=== PATIENT | female | born 1935 | race Caucasian/White ===

== ENCOUNTER 2018-10-04 19:42 | Inpatient (IN) | payer BC ==
[~2018-10-04] VITALS: Ht 160 cm; Wt 64.0 kg
[2018-10-04 20:09] VITALS: Ht 160 cm; Wt 64.0 kg
--- NOTE | 2018-10-04 20:12 | NUR ---
EMT AT BEDSIDE FOR EKG.
--- NOTE | 2018-10-04 20:25 | NUR ---
PT AAOX4, NO S/S OF DISTRESS NOTED, RESPIRATION EVEN AND UNLABORED. PT REPORTS COUGH AND FEVER X 4 DAYS ON ASSESSMENTS. PT REPORTS "TIREDNESS" X 4 DAYS. ON ASSESSMENT LUNG SOUNDS CLEAR BILATERALLY. PT DENIES PAIN AT THIS TIME. PT DENIES N/V, DIZZINESS AT THIS TIME. PT TALKING TO DAUGHTER AT BEDSIDE.
--- NOTE | 2018-10-04 21:06 | NUR ---
PT TO XRAY VIA WC, NAD NOTED.
[2018-10-04 21:38] LABS: BASOPHIL % 0.7 % (0-2); PLATELET COUNT 204 x10^3mcL (130-400); RED CELL DISTRIBUTION WIDTH 13.8 % (11.5-14.5)
[2018-10-04 21:46] LABS: CALCIUM 9.3 mg/dL (8.5-10.1); CARBON DIOXIDE 27.1 mmol/L (21-32); CHLORIDE SERUM 100 mmol/L (98-107); CREATININE SERUM 1.1 mg/dL (0.6-1.0); GLUCOSE SERUM 97 mg/dL (74-106); POTASSIUM SERUM 4.3 mmol/L (3.5-5.1); SODIUM SERUM 136 mmol/L (136-145)
--- NOTE | 2018-10-04 21:47 | NUR ---
PT SITTING UP IN BED, NO S/S OF DISTRESS NOTED, RESPIRATIONS EVEN AND UNLABORED. PT DENIES PAIN AT THIS TIME AND REPORTS IMPROVEMENTS IN BREATHING FOLLOWING BREATHING TREATMENT.
[2018-10-04 21:54] LABS: ALKALINE PHOSPHATASE 75 U/L (46-116); ALT/SGPT 24 U/L (14-59); AST/SGOT 27 U/L (15-37); BILIRUBIN TOTAL 0.5 mg/dL (0.20-1.00); TOTAL PROTEIN, SERUM 8.2 g/dL (6.4-8.2)
--- NOTE | 2018-10-04 23:24 | NUR ---
DR. RAMIREZ AT BEDSIDE DISCUSSING PLAN OF CARE.
--- NOTE | 2018-10-04 23:40 | NUR ---
DR RAMIREZ WANTS BLOOD CULTURES PRIOR TO ABX.
--- NOTE | 2018-10-04 23:42 | NUR ---
ATTEMPTING TO RECONCILE MEDS, PT UNABLE TO PROVIDE DOSES. REPORTS THAT SHE TAKES PAROXETINE, ATENOLOL, SIMVASTATIN, MULTIVITAMINS, AND BABY ASA DAILY.
[2018-10-04] MEDS ORDERED: PAROXETINE10 M1 PO (23:43)
[2018-10-04] MEDS ORDERED: ATENOLOL25 MG PO (23:43)
[2018-10-04] MEDS ORDERED: SIMVASTATIN10 M1 PO (23:43)
[2018-10-04] MEDS ORDERED: ASPIRIN CHILDRE81 MG PO (23:44)
[2018-10-04] MEDS ORDERED: MULTI-VITAMINS1 TAB PO (23:44)
--- NOTE | 2018-10-05 00:17 | NUR ---
REPORT GIVEN TO DIANE ASHLEY.
[2018-10-05 01:16] VITALS: BP 151/54
--- NOTE | 2018-10-05 01:23 | NUR ---
RECEIVED PT FROM ER. PT ADMIT FOR HYPOXIA, PT IS A/O X4, VERBAL RESPONSIVE, ABLE TO TELL WHAT SHE NEEDS. LUNG SOUND DIM DIAZ, OCCASIONALLY COUGH, DENY ANY SOB AT THIS MOMENT. PO2 93% IN ROOM AIR, DENY ANY CHEST PAIN OR DISCOMFORT, BOWEL SOUND PRESENT ALL 4 QUADRANTS, NO DISTENTION, NO TENDER. PEDAL PULSE PRESENT BOTH FEET, NO EDEMA, IV AT RIGHT AC,NO LEAKING, NO INFILTRAITON. ALL ADLS ASSIST, ALL NEED MET, CALL LIGHT IN REACH, WILL CONTINUE TO MONITOR.
[2018-10-05 01:54] VITALS: BP 151/54
[2018-10-05 02:14] LABS: CHOLESTEROL/HDL RATIO 3.3; MAGNESIUM 2.2 mg/dL (1.8-2.4); PHOSPHOROUS 4.1 mg/dL (2.5-4.9)
[2018-10-05 02:20] LABS: FREE T4 0.86 ng/dL (0.76-1.46); FREE THYROXINE INDEX 2.3 ug/dL (1.4-4.5)
[2018-10-05 02:47] LABS: T3 TOTAL 1.24 ng/mL
--- NOTE | 2018-10-05 03:25 | NUR ---
PT ASLEEP NO COUGH OR CONGESTION, NO S/SX OF PAIN OR DISCOMFORTS, VISUAL CHECKED AT INTERVALS.
[2018-10-05 05:22] VITALS: BP 117/60
--- NOTE | 2018-10-05 06:31 | NUR ---
NO SIGNIFICANT CHANGES, DENIES PAIN NO COUGHING, SLEPT WELL DURING THE SHIFT.
[2018-10-05 06:57] LABS: PLATELET COUNT 182 x10^3mcL (130-400); RED CELL DISTRIBUTION WIDTH 14.1 % (11.5-14.5)
[2018-10-05 07:02] LABS: CALCIUM 8.8 mg/dL (8.5-10.1); CHLORIDE SERUM 102 mmol/L (98-107); GLUCOSE SERUM 112 mg/dL (74-106); POTASSIUM SERUM 4.3 mmol/L (3.5-5.1); SODIUM SERUM 138 mmol/L (136-145)
--- NOTE | 2018-10-05 07:25 | NUR ---
AAO X4.DENIES ANY PAIN/DISCOMFORT.LUNGS CLEAR.PT WITH DRY FREQUENT COUGH.IV SALINE LOCKED.CALL LIGHT WITHIN REACH.INSTRUCTED TO CALL FOR ANY PAIN/DISCOMFORT.WILL CONTINUE TO MONITOR PT.
[2018-10-05 09:32] VITALS: BP 119/51
[2018-10-05 13:21] LABS: ATYPICAL LYMPH 4 %; BAND NEUTROPHIL 0 % (0-10); BASOPHIL 0 % (0-2); MONOCYTE 13 % (0-7); SEGMENTED NEUTROPHILS 74 % (37-75)
[2018-10-05 13:25] LABS: PLATELET MORPHOLOGY PLATELETS DECREASED; rbc morphology (normal/abnorm) ABNORMAL (NORMAL)
--- NOTE | 2018-10-05 13:30 | NUR ---
PT COMFORTABLE NO COMPLAINTS.
[2018-10-05 16:54] VITALS: BP 139/66
--- NOTE | 2018-10-05 18:13 | NUR ---
NO SIGNIFICANT CHANGE NOTED.WILL ENDORSE TO NEXT SHIFT.
--- NOTE | 2018-10-05 19:45 | NUR ---
SHIFT REASSESSMENT DONE.PATIENT ALERT AND ORIENTED.BREAYHING EASY,OCC COUGH,ON MUCINEX.MOVING ALL EXT WELL.RAC [place],WILL GIVE ATB TONIGHT.MEDSURG PATIENT.SKIN INTACT.CALL LIGHT IN REACH.
[2018-10-05 20:58] VITALS: BP 154/69
--- NOTE | 2018-10-05 21:14 | NUR ---
PATIENT PM MUCINEX GIVEN.HEPLOCK EXTENSION TUBING APPLIED,ALSO NS FLUSH 250 CC BAG.
--- NOTE | 2018-10-05 22:30 | NUR ---
ATB GIVEN SCHEDULE.NEW IV SITE LFA 20 GUAGE.RAC IV SITE REMOVED,
--- NOTE | 2018-10-06 01:14 | NUR ---
NOTED UA NOT COLLECTED SINCE ADMIT,PATIENT SOUND ASLEEP NOW,WILL COLLECT WHEN SHE WAKES UP.
--- NOTE | 2018-10-06 05:49 | NUR ---
I AND O MEASURED,UE SENT TO LAB.PATIENT HEPLOCK LFA INTACT.WILL ENDORSE TO NEXT SHIFT.
[2018-10-06 06:11] VITALS: BP 109/67
[2018-10-06 06:20] LABS: CALCIUM 9.2 mg/dL (8.5-10.1); CARBON DIOXIDE 28.2 mmol/L (21-32); CHLORIDE SERUM 106 mmol/L (98-107); CREATININE SERUM 0.9 mg/dL (0.6-1.0); GLUCOSE SERUM 104 mg/dL (74-106); POTASSIUM SERUM 4.6 mmol/L (3.5-5.1); SODIUM SERUM 141 mmol/L (136-145)
--- NOTE | 2018-10-06 07:20 | NUR ---
RECIEVED PT FROM [facility] DIANE LEON. PT FOUND RESTING IN BED WITH BOTH EYES CLOSED ON ROOM AIR. NO S/S OF ACUTE DISTRESS. NO S/S OF ACUTE RESPIRATORY DISTRESS. RR EVEN/UNLABORED. NO COMPLAINT OF PAIN. CALM/COOPERATIVE AT THIS TIME. IV WNL TO LFA, NO REDNESS, NO SWELLING, NO INFILTRATION. PATENT. SALINE LOCKED. BED IN LOW POSITION. CALL LIGHT WITHIN REACH. WILL CONT. TO MONITOR.
[2018-10-06 08:08] LABS: BASOPHIL % 0.6 % (0-2); PLATELET COUNT 170 x10^3mcL (130-400); RED CELL DISTRIBUTION WIDTH 14.2 % (11.5-14.5)
[2018-10-06 09:12] LABS: microscopic required? YES; urine erythrocyte TRACE (NEGATIVE)
[2018-10-06 10:25] VITALS: BP 141/94
--- NOTE | 2018-10-06 12:09 | NUR ---
PT LAYING IN BED. AA/OX4. AMBULATED IN HALLWAYS X 3 LAPS. TOLERATED WELL. DENIES SOB ON ROOM AIR. RR EVEN/UNLABORED. CHEST EXPANSION SYMMETRICAL. DRY COUGH NOTED. NO COMPLAINT OF PAIN. NO N/V. NO CHEST PAIN. PT CALM/COOPERATIVE. BED IN LOW POSITION. CALL LIGHT WITHIN REACH. WILL CONT. TO MONITOR.
[2018-10-06 15:50] VITALS: BP 141/94
[2018-10-06 17:16] VITALS: BP 146/66
--- NOTE | 2018-10-06 18:15 | NUR ---
PT DISCHARGED TO HOME. AWAKE, ALERT, ORIENTED X4. NO S/S OF ACUTE DISTRESS. DENIES SOB ON ROOM AIR. RR EVEN/UNLABORED. CHEST EXPANSION SYMMETRICAL DENIES CHEST EXPANSION SYMMETRICAL. NO N/V. NO FEVER. NO CHILLS. NO ESPINO. NO DIZZINESS. DISCHARGE EDUCATION PROVIDED TO PT. INSTRUCTED TO FOLLOW UP WITH PCP AND MAKE APPT TO BE SEEN WITHIN 3-4 DAYS. VERBALIZED UNDERSTANDING. PRESCRIPTION PROVIDED TO PATIENT. IV WNL TO RFA, NO REDNESS, NO SWELLING, NO INFILTRATION. CATHETER IN TACT. BELONGINGS WITH PATIENT. TAKEN BY WHEELCHAIR TO LOBBY BY CASEY NOLEN. ACCOMPANIED BY FAMILY MEMBER.
== END 2018-10-06 18:14 | disposition home or self-care (01) | DRG 153 ==
LOC: ED 19:42 → MU 23:41
PROVIDERS: Emergency Medicine; General Practice; ADMIT Family Medicine
DX: J06.9 Acute upper respiratory infection, unspecified (principal); J45.901 Unspecified asthma with (acute) exacerbation; R09.02 Hypoxemia; I10 Essential (primary) hypertension; R73.03 Prediabetes; E78.5 Hyperlipidemia, unspecified; Z68.25 Body mass index [BMI] 25.0-25.9, adult
CPT/HCPCS: 84439; 87804; J0456; J0696; J2920; J7050; J7620; J7626